=== PATIENT | female | born 1930 | race Caucasian/White ===

== ENCOUNTER 2017-11-14 05:44 | Day surgery (SDC) | payer OTHER ==
[2017-11-14] MEDS ORDERED: LIDOCAINE 1% 2 ML INJ ID PRN (06:28)
[2017-11-14] MEDS ORDERED: LR 1,000 ML IV ONE (06:28)
[2017-11-14] MEDS ORDERED: BUPIVACAINE 0.25% 30 ML SDV ONE (06:34)
[2017-11-14] MEDS ORDERED: BACITRACIN 50,000 UNITS/10 ML SYR IRR ONE (06:35)
[2017-11-14] MEDS ORDERED: THROMBIN (BOVINE) 5,000 UNIT VIAL TP ONE (06:35)
[2017-11-14] MEDS ORDERED: CHLORHEXIDINE GLUC HIBICLENS 118 ML BTL TP ONE (06:35)
[2017-11-14] MEDS ORDERED: LIDOCAINE 1% 2 ML INJ ONE (06:39)
--- NOTE | 2017-11-14 07:05 | PDGENHP ---
History & Physical Chief Complaint: prominent spinous process History of Present Illness: previous posterior cervical fusion with prominent spinous process Pertinent Past, Social, Family History: see chart Relevant Physical Exam: AAOx4, + FC. PERRL, EOMI. [place] x4. + light touch
[2017-11-14] MEDS ORDERED: ceFAZolin 2 GM/SWFI 2 GM/20 ML SYR IVP ONE (07:10)
[2017-11-14] MEDS ORDERED: ceFAZolin 2 GM/SWFI 20 ML SYR IVP ONE (07:12)
[2017-11-14] MEDS ORDERED: PROPOFOL 200 MG/20 ML VIAL ONE (07:12)
[2017-11-14] MEDS ORDERED: fentaNYL 100 MCG/2 ML INJ ONE (07:12)
--- NOTE | 2017-11-14 07:21 | PDANEPAE ---
ANE Past Medical History - Cardiovascular History Hx Hypertension: Yes Hx Arrhythmias: No Hx Chest Pain: No Hx Coronary Artery / Peripheral Vascular Disease: No Hx CHF / Valvular Disease: No Hx Palpitations: No Cardiovascular History Comment: pcp monitors bp - Pulmonary History Hx COPD: No Hx Asthma/Reactive Airway Disease: No Hx Recent Upper Respiratory Infection: No Hx Oxygen in Use at Home: No Hx Sleep Apnea: No Sleep Apnea Screening Result - Last Documented: Negative - Neurologic History Hx Cerebrovascular Accident: No Hx Seizures: No Hx Dementia: No Neurologic History Comment: hx of c3-7 fusion in 1999 - Endocrine History Hx Diabetes: No Endocrine History Comment: hypothyroidism - Renal History Hx Renal Disorders: No - Liver History Hx Hepatic Disorders: No - Neurological & Psychiatric Hx Hx Neurological and Psychiatric Disorders: Yes Neurological / Psychiatric History Comment: anxiety - Cancer History Hx Cancer: Yes Cancer History Comment: spot on forehead removed- basal cell - Congenital Disorder History Hx Congenital Disorders: No - GI History Hx Gastrointestinal Disorders: No - Other Health History Other Health History: wears glasses. very dry skin - Chronic Pain History Chronic Pain: Yes (neck and shoulders) - Surgical History Prior Surgeries: c3-7 fusion 1999. right shoulder repair- scope ANE Review of Systems Review of Systems: - Exercise capacity METS (RN): 4 METS ANE Patient History - Allergies Allergies/Adverse Reactions: acetaminophen [From Vicodin] Allergy (Verified 10/07/17 11:09) Unknown atenolol [From Tenoretic] Allergy (Verified 10/07/17 11:09) Unknown chlorthalidone [From Tenoretic] Allergy (Verified 10/07/17 11:09) Unknown codeine Allergy (Verified 10/07/17 11:09) Unknown cyclobenzaprine [From Flexeril] Allergy (Verified 10/07/17 11:09) Unknown fentanyl Allergy (Verified 10/07/17 11:09) Unknown gabapentin Allergy (Verified 10/07/17 11:09) Unknown hydrocodone [From Vicodin] Allergy (Verified 10/07/17 11:09) Unknown mirtazapine [From Remeron] Allergy (Verified 10/07/17 11:09) Unknown morphine Allergy (Verified 10/07/17 11:09) Unknown pregabalin [From Lyrica] Allergy (Verified 10/07/17 11:09) Unknown - Home Medications Home Medications: Allopurinol [Allopurinol 300 MG (RX)] 300 mg PO DAILY 10/07/17 [Last Taken 11/14 05:15] DULoxetine [Cymbalta 30 MG (*)] 30 mg PO DAILY 10/07/17 [Last Taken 11/14/17 05: 15] DULoxetine [Cymbalta 60 MG (*)] 60 mg PO DAILY 10/07/17 [Last Taken 11/14/17 05: 15] Diclofenac Sodium 1% [Voltaren Gel (*)] 2 - 4 gm TP TID PRN 10/07/17 [Last Taken 1 Month Ago ~10/17/17] Hydrocortisone 0.2% Valerate [Westcort 0.2% Cream (*)] 15 alesha TP BID 10/07/17 [ Last Taken 11/13/17] LORazepam [Ativan (*)] 0.5 mg PO HS PRN 10/07/17 [Last Taken Unknown] Levothyroxine [Synthroid 75 mcg (*)] 37.5 mcg PO SUWE 10/07/17 [Last Taken 11/13] Levothyroxine [Synthroid 75 mcg (*)] 75 mcg PO MOTUTHFRSA 10/07/17 [Last Taken 11/14/17 05:15] Methylphenidate HCl [Ritalin 5mg (*)] 5 mg PO DAILY@08,12 10/07/17 [Last Taken 11/13/17] Potassium Cl [Klor-Con 20 meq (*)] 20 meq PO DAILY 10/07/17 [Last Taken Unknown] Torsemide 10 mg PO TID 10/07/17 [Last Taken 11/13/17 14:00] Valsartan [Diovan (*)] 80 mg PO DAILY 10/07/17 [Last Taken 11/13/17 09:00] Zolpidem Tartrate [Ambien 5MG (*)] 5 - 10 mg PO HS PRN 10/07/17 [Last Taken 03/26 21:45] tiZANidine HCL [Zanaflex] 4 mg PO HS 10/07/17 [Last Taken Unknown] - NPO status NPO Since - Liquids (Date): 11/13/17 NPO Since - Liquids (Time): 21:30 NPO Since - Solids (Date): 11/13/17 NPO Since - Solids (Time): 20:00 - Anes Hx Anes Hx: post operative nausea - Smoking Hx Smoking Status: Never smoked - Family Anes Hx Family Hx Anesthesia Complications: none ANE Labs/Vital Signs - Vital Signs Blood Pressure: 150/88 Heart Rate: 89 Respiratory Rate: 16 O2 Sat (%): 95 Height: 162.56 cm Weight: 54.431 kg ANE Physical Exam - Airway Neck exam: decreased ROM Mallampati Score: Class 3 Mouth exam: small mouth opening - Pulmonary Pulmonary: no respiratory distress, no rales or rhonchi, clear to auscultation - Cardiovascular Cardiovascular: regular rate and rhythym, no murmur, rub, or gallop - ASA Status ASA Status: II ANE Anesthesia Plan Anesthesia Plan: general endotracheal anesthesia Specialized Airway: video laryngoscope
[2017-11-14] MEDS ORDERED: DICLOFENAC SODIUM 1% 100 GM GEL TP PRN ×2 (07:46→15:11)
[2017-11-14] MEDS ORDERED: ZOLPIDEM TARTRATE 5 MG TAB PO PRN (07:46)
[2017-11-14] MEDS ORDERED: LORazepam 0.5 MG TAB PO PRN (07:46)
[2017-11-14] MEDS ORDERED: DEXAMETHASONE 4 MG/ML VIAL ONE (07:47)
[2017-11-14] MEDS ORDERED: ONDANSETRON 4 MG/2 ML VIAL ONE (07:47)
[2017-11-14] MEDS ORDERED: LIDOCAINE 2% 5 ML SDV ONE (07:50)
[2017-11-14] MEDS ORDERED: ROCURONIUM 50 MG/5 ML VIAL ONE (07:50)
[2017-11-14] MEDS ORDERED: LEVOTHYROXINE 75 MCG TAB PO SCH (08:00)
[2017-11-14] MEDS ORDERED: PHENYLEPHRINE HCL 100 MCG/ML SYR ONE (08:06)
--- NOTE | 2017-11-14 08:13 | PDANEPAE ---
ANE Past Medical History - Cardiovascular History Hx Hypertension: Yes Hx Arrhythmias: No Hx Chest Pain: No Hx Coronary Artery / Peripheral Vascular Disease: No Hx CHF / Valvular Disease: No Hx Palpitations: No Cardiovascular History Comment: pcp monitors bp - Pulmonary History Hx COPD: No Hx Asthma/Reactive Airway Disease: No Hx Recent Upper Respiratory Infection: No Hx Oxygen in Use at Home: No Hx Sleep Apnea: No Sleep Apnea Screening Result - Last Documented: Negative - Neurologic History Hx Cerebrovascular Accident: No Hx Seizures: No Hx Dementia: No Neurologic History Comment: hx of c3-7 fusion in 1999 - Endocrine History Hx Diabetes: No Endocrine History Comment: hypothyroidism - Renal History Hx Renal Disorders: No - Liver History Hx Hepatic Disorders: No - Neurological & Psychiatric Hx Hx Neurological and Psychiatric Disorders: Yes Neurological / Psychiatric History Comment: anxiety - Cancer History Hx Cancer: Yes Cancer History Comment: spot on forehead removed- basal cell - Congenital Disorder History Hx Congenital Disorders: No - GI History Hx Gastrointestinal Disorders: No - Other Health History Other Health History: wears glasses. very dry skin - Chronic Pain History Chronic Pain: Yes (neck and shoulders) - Surgical History Prior Surgeries: c3-7 fusion 1999. right shoulder repair- scope ANE Review of Systems Review of Systems: - Exercise capacity METS (RN): 4 METS ANE Patient History - Allergies Allergies/Adverse Reactions: acetaminophen [From Vicodin] Allergy (Verified 10/07/17 11:09) Unknown atenolol [From Tenoretic] Allergy (Verified 10/07/17 11:09) Unknown chlorthalidone [From Tenoretic] Allergy (Verified 10/07/17 11:09) Unknown codeine Allergy (Verified 10/07/17 11:09) Unknown cyclobenzaprine [From Flexeril] Allergy (Verified 10/07/17 11:09) Unknown fentanyl Allergy (Verified 10/07/17 11:09) Unknown gabapentin Allergy (Verified 10/07/17 11:09) Unknown hydrocodone [From Vicodin] Allergy (Verified 10/07/17 11:09) Unknown mirtazapine [From Remeron] Allergy (Verified 10/07/17 11:09) Unknown morphine Allergy (Verified 10/07/17 11:09) Unknown pregabalin [From Lyrica] Allergy (Verified 10/07/17 11:09) Unknown - Home Medications Home Medications: Allopurinol [Allopurinol 300 MG (RX)] 300 mg PO DAILY 10/07/17 [Last Taken 11/14 05:15] DULoxetine [Cymbalta 30 MG (*)] 30 mg PO DAILY 10/07/17 [Last Taken 11/14/17 05: 15] DULoxetine [Cymbalta 60 MG (*)] 60 mg PO DAILY 10/07/17 [Last Taken 11/14/17 05: 15] Diclofenac Sodium 1% [Voltaren Gel (*)] 2 - 4 gm TP TID PRN 10/07/17 [Last Taken 1 Month Ago ~10/17/17] Hydrocortisone 0.2% Valerate [Westcort 0.2% Cream (*)] 15 alesha TP BID 10/07/17 [ Last Taken 11/13/17] LORazepam [Ativan (*)] 0.5 mg PO HS PRN 10/07/17 [Last Taken Unknown] Levothyroxine [Synthroid 75 mcg (*)] 37.5 mcg PO SUWE 10/07/17 [Last Taken 11/13] Levothyroxine [Synthroid 75 mcg (*)] 75 mcg PO MOTUTHFRSA 10/07/17 [Last Taken 11/14/17 05:15] Methylphenidate HCl [Ritalin 5mg (*)] 5 mg PO DAILY@08,12 10/07/17 [Last Taken 11/13/17] Potassium Cl [Klor-Con 20 meq (*)] 20 meq PO DAILY 10/07/17 [Last Taken Unknown] Torsemide 10 mg PO TID 10/07/17 [Last Taken 11/13/17 14:00] Valsartan [Diovan (*)] 80 mg PO DAILY 10/07/17 [Last Taken 11/13/17 09:00] Zolpidem Tartrate [Ambien 5MG (*)] 5 - 10 mg PO HS PRN 10/07/17 [Last Taken 03/26 21:45] tiZANidine HCL [Zanaflex] 4 mg PO HS 10/07/17 [Last Taken Unknown] - NPO status NPO Since - Liquids (Date): 11/13/17 NPO Since - Liquids (Time): 21:30 NPO Since - Solids (Date): 11/13/17 NPO Since - Solids (Time): 20:00 - Smoking Hx Smoking Status: Never smoked - Family Anes Hx Family Hx Anesthesia Complications: none ANE Labs/Vital Signs - Vital Signs Blood Pressure: 150/88 Heart Rate: 89 Respiratory Rate: 16 O2 Sat (%): 95 Height: 162.56 cm Weight: 54.431 kg
[2017-11-14] MEDS ORDERED: BACITRACIN ZINC 14.2 GM OINTTUBE TP ONE (08:26)
[2017-11-14] MEDS ORDERED: DIAZEPAM 5 MG/ML 1 ML SYR IVP PRN (08:28)
[2017-11-14] MEDS ORDERED: MEPERIDINE 25 MG/ML SYR IVP PRN (08:28)
[2017-11-14] MEDS ORDERED: PROMETHAZINE HCL 25 MG/ML INJ IVP PRN (08:28)
[2017-11-14] MEDS ORDERED: NALOXONE HCL 0.4 MG/ML INJ IVP PRN (08:28)
[2017-11-14] MEDS ORDERED: ONDANSETRON 4 MG/2 ML VIAL IVP PRN (08:33)
[2017-11-14] MEDS ORDERED: ENALAPRILAT DIHYDRATE 1.25 MG/ML VIAL IVP PRN (08:33)
[2017-11-14] MEDS ORDERED: NS 500 ML IV PRN (08:33)
--- NOTE | 2017-11-14 08:41 | GOP ---
[f rep st] OPERATIVE REPORT DATE OF OPERATION: 11/14/2017 SURGEON: Juan M Coates MD NEUROSURGEON: Juan M Coates MD. TUBE MACHINE OPERATOR: None. PREOPERATIVE DIAGNOSIS: Fascial breakdown of posterior cervical wound with prominence of spinous pro cesses. POSTOPERATIVE DIAGNOSIS: Fascial breakdown of posterior cervical wound with prominence of spinous pr ocesses. PROCEDURE PERFORMED: Multilevel posterior cervicothoracic wound debridement and removal of posterior spinous processes. FINDINGS: ESTIMATED BLOOD LOSS: Trace. INDICATIONS: The patient is an 87-year-old woman who underwent a prior complicated posterior cervica l procedure and had a fascial breakdown, with the spinous processes very prominent out of the skin in her cervicothoracic area. She presents now for debridement and removal of the spinous processes and a tissue flap by the plastic surgeon, Dr. Biju Dacosta. DESCRIPTION OF PROCEDURE: After informed consent was obtained, the patient was taken to the operatin g room and placed in the prone position with her head in a Jimenez shaft headman. The posterior cervi cothoracic regions were prepped and draped in a sterile fashion, and the prior wound carefully expose d. A subperiosteal dissection was carried down along the spinous processes, which were then removed using the double action rongeur. Meticulous hemostasis was achieved. The area was extensively debri ded, and Dr. Biju Dacosta, the plastic surgeon, took over from there. COMPLICATIONS: None. /[id number]/MODL
[2017-11-14] MEDS ORDERED: SUGAMMADEX SODIUM 200 MG/2 ML VIAL IVP ONE (08:43)
[2017-11-14] MEDS ORDERED: TORSEMIDE 10 MG TAB PO SCH (09:00)
[2017-11-14] MEDS ORDERED: HYDROCORTISONE 0.2% VALERATE CREAM TP SCH ×2 (09:00→15:15)
[2017-11-14] MEDS ORDERED: DULoxetine 60 MG CAP PO SCH (09:00)
[2017-11-14] MEDS ORDERED: DULoxetine 30 MG CAP PO SCH (09:00)
[2017-11-14] MEDS ORDERED: ALLOPURINOL 300 MG TAB PO SCH (09:00)
[2017-11-14] MEDS ORDERED: VALSARTAN 80 MG TAB PO SCH (09:00)
--- NOTE | 2017-11-14 09:01 | GOP ---
[f rep st] OPERATIVE REPORT DATE OF OPERATION: 11/14/2017 SURGEON: Shefali Dacosta Jr., MD COMPENSATION ASSOCIATE: Heri Han PAINTINGS RESTORER by surgeon request (skilled rn neurosurgical was necessary due to the technical complexity of the case and desire to minimize patient's anesthesia time. ANESTHESIA: Patient underwent general inhalational anesthetic. ANESTHESIOLOGIST: Nick Morrison MD. 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 POSTOPERATIVE DIAGNOSIS: Chronically exposed cervical spinous process with lack of soft tissue cover age, status post neurosurgical procedure. PROCEDURE PERFORMED: 1. Debridement of skin, subcutaneous tissue, muscle, and vertebral spinous process. 2. Bilateral trapezius muscle flap advancement to cover cervical spinal wound. 3. Bilateral fasciocutaneous advancement flaps to cover midline defect, approximately 40 square cm. FINDINGS: ESTIMATED BLOOD LOSS: During reconstruction was 10 cc. INDICATIONS: The patient is an 87-year-old white female, who underwent cervical spinal surgery and d eveloped significant soft tissue atrophy with exposure of her cervical spinal processes. This failed to resolve with conservative treatment. She was brought into the operating room for debridement and definitive closure. DESCRIPTION OF PROCEDURE: She was taken to the operating room. After adequate inhalational general anesthesia was provided by Dr. Emerson Morrison, she was placed in a well-padded prone position. The spin ous processes were debrided by Dr. Juan M Coates, and the pocket was irrigated with bacitracin saline. Once the smooth contour had been assured, I nancy igned bilateral trapezius muscle flaps with separate skin fasciocutaneous flaps. The muscle flaps we re elevated and mobilized to the midline. They were inset over the vertebral bodies using buried fig [id number] 2-0 Vicryl sutures. This provided excellent soft tissue muscle coverage but left a roug hly 40 square cm defect. Fasciocutaneous flaps were elevated and advanced to the midline. A 15 roun d drain was placed. The fascia was then inset using 2-0 Vicryl suture. Skin edges reapproximated us ing everting deep dermal 3-0 Monocryl suture and final skin eversion was carried out using surgical s taples. She tolerated the procedure well without complication. She was extubated in the operating r oom, taken to recovery room, awakened in stable condition. DRAINS: One ABISAI drain was placed. COMPLICATIONS: None. CLINICAL COURSE: After risks and benefits of procedure were explained to the patient highlighting bl eeding, infection, recurrent wound breakdown, damage to muscles, nerves or underlying spinal cord wit h residual numbness or weakness, hypertrophic scarring, failure of flap reconstruction, and need for additional procedures, formal operative consent was obtained. /[id number]/MODL
--- NOTE | 2017-11-14 09:10 | POSTANESTH ---
Post Anesthetic Evaluation Cardiovascular Status: Similar to Pre-Op Cond Respiratory Status: Normal, Stable, Similar to Pre-op Cond. Level of Consciousness/Mental Status: Can Participate in Eval, Mildly Sleepy, Arousable Pain Control: Adequate, Prn Tx Ordered Nausea/Vomiting Control: Adequate, Prn Tx Ordered Complications Possibly Related to Anesthesia: None Noted
[2017-11-14] MEDS ORDERED: HYDROmorphONE/DILAUDID 2 MG/ML INJ ONE (09:21)
[2017-11-14] MEDS: HYDROmorphONE/DILAUDID 1 MG/ML INJ IVP PRN ×5 (09:28→10:55)
[2017-11-14] MEDS: oxyCODONE IR 5 MG TAB PO PRN ×2 (11:48→16:41)
[2017-11-14 11:54] VITALS: PULSE 96
--- NOTE | 2017-11-14 14:00 | PDHOMEO2F ---
Home Oxygen Face to Face Home Orders: I certify that a physician or a nurse practitioner or physician's vet assistant has had a [id number] encounter with this patient on the date of this order due to the diagnosis listed, which relates to the primary reason the patient requires home oxygen. Alternative treatments have been tried, or considered, and deemed ineffective. It is anticipated that supplemental oxygen will result in improvement with treatment. Home oxygen qualifying diagnosis: postoperative hypoxia SpO2 on room air (%): 78% Frequency of home oxygen needed: continuous Home oxygen liters per minute: 2 Home oxygen delivery device: nasal cannula Concentrator: No E-tanks for mobility and back up: No If ordering portable O2, is the patient mobile in the home?: Yes I certify that, based on these findings, the home oxygen is medically necessary for this patient for the following length of time. Length of time home oxygen needed: (Overnight November 14; may not be needed thereafter.)
--- NOTE | 2017-11-14 16:00 | PDHOMEO2F ---
Home Oxygen Face to Face Home Orders: I certify that a physician or a nurse practitioner or physician's assistant community director has had a [id number] encounter with this patient on the date of this order due to the diagnosis listed, which relates to the primary reason the patient requires home oxygen. Alternative treatments have been tried, or considered, and deemed ineffective. It is anticipated that supplemental oxygen will result in improvement with treatment. Home oxygen qualifying diagnosis: Postoperative hypoxia SpO2 on room air (%): 78% Frequency of home oxygen needed: continuous Home oxygen liters per minute: 2 Home oxygen delivery device: nasal cannula Concentrator: No E-tanks for mobility and back up: No If ordering portable O2, is the patient mobile in the home?: Yes I certify that, based on these findings, the home oxygen is medically necessary for this patient for the following length of time. Length of time home oxygen needed: 1 week (Possibly only overnight. May D/C when room air sat >90%.)
[2017-11-14 16:42] VITALS: BP 133/72; O2SAT 98
[2017-11-14 16:49] VITALS: RESP 16; TEMP 97.5
[2017-11-17] MEDS ORDERED: LEVOTHYROXINE 75 MCG TAB PO SCH (07:46)
== END 2017-11-14 16:53 | disposition home or self-care (01) ==
LOC: FSGY 05:44 → F3E 05:44 → UNDOADMOB 05:44 → EDSTATUS 07:15 → FSGY 16:53
PROVIDERS: ATTEND Neurological Surgery
PROC: 0JX70ZC Transfer Back Subcutaneous Tissue and Fascia with Skin, Subcutaneous Tissue and Fascia, Open Approach (ICD-10-PCS; 2017-11-14)
PROC: 0PB30ZZ Excision of Cervical Vertebra, Open Approach (ICD-10-PCS; principal; 2017-11-14 07:15)
DX: T81.31XA Disruption of external operation (surgical) wound, not elsewhere classified, initial encounter (principal); Z98.1 Arthrodesis status
CPT/HCPCS: J0171; J0690; J1100; J1170; J2370; J2405; J2704; J3010